=== PATIENT | female | born 1955 | race Caucasian/White ===

== ENCOUNTER 2020-06-26 14:46 | Outpatient (CLI) | payer MEDICARE, SELFPAY ==
--- NOTE | ~2020-06-26 | DEXA_ITS ---
Bone Density Report Name: Pamela Howell Age: 64 Sex: Female Ethnicity: White Date of : 1955 Indication: postmenopausal; height loss; prior fracture; Referring Provider: Guillaume Ray Study: Bone densitometry was performed. Exam Date: June 26, 2020 Accession number: [id number] Bone Density: Region BMD T-score Z-score Classification Femoral Neck (Left) 0.777 -0.6 0.9 Normal Total Hip (Left) 0.899 -0.3 0.9 Normal World Health Organization criteria for BMD impression classify patients as: Normal (T-score at or above -1.0), Osteopenia (T-score between -1.0 and -2.5), or Osteoporosis (T-score at or below -2.5). 10-year Fracture Risk: FRAX not reported because: All T-scores for Spine Total, Hip Total, Femoral Neck at or above -1.0 Prior hip or vertebral fracture Previous Exams: Region Exam Age BMD T-score BMD Change BMD Change Date g/cm2 vs Baseline vs Previous Total Hip(Left) 06/26/2020 64 0.899 -0.3 0.010(1.1%) 0.049(5.7%)* 05/23/2018 62 0.851 -0.7 -0.039(-4.4%)* -0.039(-4.4%)* 09/24/2014 58 0.890 -0.4 *Denotes significance at 95% confidence level, LSC for Total Hip = 0.027 g/cm2 Clinical Information Provided by Patient: Have had a previous hip or vertebral fracture Has had a low trauma fracture Has used the following medications: Vitamin D, Calcium Patient maximum height was 65 Menopause Age: 54 No regular weight bearing exercise Drinks caffeinated beverages Onset of menses at age 10 Number of children 3 Impression: The patient has normal bone mass. The patient has risk factors, including: previous fracture. No significant bone loss was observed. Discussion: INCREASED RISK OF FRACTURE DUE TO HISTORY OF FRACTURE. The patient's previous fracture puts the patient at high risk of a future fracture. In untreated patients, the risk of osteoporotic fracture increases approximately two-fold for each 1.0 SD decrease in T-score. Low bone density is not the only risk factor for fracture; also consider factors such as patient's age, frailty or poor health, risk of falling, risk of injury, previous osteoporotic fracture, family history of osteoporosis, cigarette smoking, low body weight, etc. Not everyone with a low trauma fracture has osteoporosis; osteomalacia and other metabolic bone disorders should also be considered. Patients who have osteoporosis should be evaluated for specific diseases and conditions (secondary causes) that may cause or contribute to bone loss and fracture risk. National Osteoporosis Foundation (NOF) recommends pharmacologic intervention for patient
--- NOTE | ~2020-06-26 | MM_ITS ---
EXAMINATION: MM screening corey BI w jos HISTORY: Screening TECHNIQUE: Craniocaudal and mediolateral oblique 3-D tomosynthesis images were obtained and synthetic 2-D images were generated. CAD analysis was submitted and interpreted. COMPARISON: Comparison to multiple prior studies sequentially, with oldest reviewed study dated 03/24. BREAST PARENCHYMAL COMPOSITION: The breasts are heterogenously dense, which may obscure small masses. FINDINGS: There is no evidence of suspicious mass, calcification, or architectural distortion to sugg est malignancy in either breast. There has been no suspicious interval change. IMPRESSION: 1. No mammographic evidence of malignancy. 2. Recommend routine screening mammography in one year. BI-RADS Category 1: Negative Reviewed, dictated and finalized at location A.
== END 2020-06-26 14:47 | disposition home or self-care (01) ==
PROVIDERS: PCP Family Medicine; Visit Provider Physician Assistant Medical
DX: Z12.31 Encounter for screening mammogram for malignant neoplasm of breast (principal); Z78.0 Asymptomatic menopausal state
CPT/HCPCS: 77063; 77067; 77080

== ENCOUNTER 2020-08-05 15:57 | Outpatient (CLI) | payer MEDICARE, SELFPAY ==
--- NOTE | ~2020-08-05 | CT_ITS ---
EXAMINATION: CT sinus wo con DATE: 08/05/2020 16:22 INDICATION: Headache, unspecified. Sinus pain and pressure. Sinus drainage. TECHNIQUE: Computed tomography (CT) of the paranasal sinuses was performed without intravenous contra st. Iterative reconstruction technique was employed. The dose-length product was 280.71 mGy-cm. COMPARISON: Head CT 09/10/2016 FINDINGS: The frontal sinuses are clear. There is mild mucosal thickening in the ethmoid sinuses bila terally. The sphenoid sinuses are clear. There is minimal mucosal thickening in the maxillary sinuses . There is rightward deviation of the nasal septum. Left middle turbinate is paradoxical anteriorly. There are bilateral Aniceto cells. The ostiomeatal units are patent. IMPRESSION: 1. Mild mucosal thickening in the paranasal sinuses. 2. Rightward deviation of the nasal septum. Reviewed, dictated and finalized at location A.
== END 2020-08-05 15:58 | disposition home or self-care (01) ==
LOC: ANHIMG 15:57
PROVIDERS: PCP Family Medicine; Visit Provider Otolaryngology
DX: J34.89 Other specified disorders of nose and nasal sinuses (principal); R51.9 Headache, unspecified; R44.8 Other symptoms and signs involving general sensations and perceptions; J34.2 Deviated nasal septum
CPT/HCPCS: 70486

== ENCOUNTER 2020-09-09 03:14 | Day surgery (SDC) | payer MEDICARE, SELFPAY ==
[2020-08-28 12:56] VITALS: BMI 29.8
[2020-09-09 09:04] VITALS: BP 123/76; PULSE 62; RESP 16; TEMP 36.3; O2SAT 97; BMI 29.1
[2020-09-09] MEDS: LACTATED RINGERS 1,000 ML 150 ML IV CONT (09:23)
--- NOTE | 2020-09-09 09:29 | WPDANESEPPF ---
Anes - Initial Pre Proc Eval Procedure: Operation Date: 09/09/20 10:00 Proposed Procedures p Screening Colonoscopy - Tho Martin MD Date/Time: 09/09/20 09:29 Surgeon: Tho Martin MD Pre Op Diagnosis: neoplasm screening Patient Data Age: 64 Gender: F Height: 1.57 m Weight: 72.2 kg Last Vital Signs Temp 36.3 C L 09/09/20 09:04 Pulse 62 09/09/20 09:04 Resp 16 09/09/20 09:04 BP 123/76 09/09/20 09:04 Pulse Ox 97 09/09/20 09:04 Allergies Allergy/AdvReac Type Severity Reaction Status Date / Time tobramycin Allergy Unknown Unknown Verified 09/09/20 09:02 meperidine [From Demerol] AdvReac Unknown Unknown Verified 09/09/20 09:02 Home Medications Medication Instructions Recorded Confirmed Type fluticasone propionate 50 1 spray INTRANASAL BID #16 ml 06/01/20 09/09/20 Rx mcg/actuation nasal spray,suspension alprazolam 0.25 mg PO DAILY PRN 08/28/20 09/09/20 History ascorbic acid (vitamin C) 500 mg PO DAILY 08/28/20 09/09/20 History calcium carbonate-vitamin D3 1 cap PO DAILY 08/28/20 09/09/20 History ibuprofen 200 mg PO BID 08/28/20 09/09/20 History metoprolol tartrate 25 mg PO BID 08/28/20 08/28/20 History multivit with min-folic acid 1 tablet PO DAILY 08/28/20 09/09/20 History [Adult One Daily Multivitamin] azelastine 137 mcg (0.1 %) nasal See Rx Instructions .ROUTE 09/03/20 09/09/20 Rx spray aerosol .COMPLEX #90 spray Patient hx anesthesia problems: none Family hx anesthesia problems: none PMFSH Past Medical History Medical History (Updated 09/09/20 @ 09:30 by Jatin Car MD) Essential hypertension Other forms of scoliosis, thoracolumbar region Paroxysmal SVT (supraventricular tachycardia) 05.20.20 event monitor sinus with intermittent svt ( short runs) Pinguecula of both eyes Plantar fasciitis, bilateral Trigger finger, left ring finger Unilateral primary osteoarthritis, right hip Family History Family History Father Family history of cardiovascular disease Family history of coronary artery disease Family history of heart disease in male family member before age 55 Mother Family history of aortic aneurysm Other Diabetes mellitus Social History Social History Years smoked: 10 Smoking status: Former smoker Tobacco type: cigarettes Smoking end date: 02/06/85 Alcohol intake: current Alcohol use details: Monthly Substance use: never Substance use type: does not use Living arrangements: with family Gender identity (if verbalized by the patient): Female Spiritual care concerns: No Anes - Eval Final PreProcedure Day of Procedure 09/09/20 09:29 Patient weight: overweight Heart: regular rate and rhythm Lungs: clear to auscultation and normal air movement Airway: Mallampati scale class II Neurological: alert and oriented Last oral intake: >/= 8 hours ASA classification: II Emergent: no Anesthetic plan: proceed Anesthesia type and monitoring: general GIVS Informed Consent: The patient's anesthetic plan and its attendant risks and benefits were discussed with the patient/family/POA. Questions were solicited and answers provided to the satisfaction of the patient/family/POA.
--- NOTE | 2020-09-09 09:55 | PM.HPGS ---
History of Present Illness History of Present Illness Consent: Risks, benefits, and alternatives have been discussed and questions answered. Patient agrees to proceed with procedure. Chief complaint: neoplasm screening Narrative: Pamela Howell is a 64 year old female referred for colon cancer screening. This is her 1st colonoscopy Review of Systems Review of Systems: All systems reviewed & are unremarkable except as noted in HPI and below PMFSH Past Medical History Medical History Essential hypertension Other forms of scoliosis, thoracolumbar region Paroxysmal SVT (supraventricular tachycardia) 05.20.20 event monitor sinus with intermittent svt ( short runs) Pinguecula of both eyes Plantar fasciitis, bilateral Trigger finger, left ring finger Unilateral primary osteoarthritis, right hip Family History Family History Father Family history of cardiovascular disease Family history of coronary artery disease Family history of heart disease in male family member before age 55 Mother Family history of aortic aneurysm Other Diabetes mellitus Social History Social History Years smoked: 10 Smoking status: Former smoker Tobacco type: cigarettes Smoking end date: 02/06/85 Alcohol intake: current Alcohol use details: Monthly Substance use: never Substance use type: does not use Living arrangements: with family Gender identity (if verbalized by the patient): Female Spiritual care concerns: No Meds Home Medications and Allergies Home Medications Medication Instructions Recorded Confirmed Type fluticasone propionate 50 1 spray INTRANASAL BID #16 ml 06/01/20 09/09/20 Rx mcg/actuation nasal spray,suspension alprazolam 0.25 mg PO DAILY PRN 08/28/20 09/09/20 History ascorbic acid (vitamin C) 500 mg PO DAILY 08/28/20 09/09/20 History calcium carbonate-vitamin D3 1 cap PO DAILY 08/28/20 09/09/20 History ibuprofen 200 mg PO BID 08/28/20 09/09/20 History metoprolol tartrate 25 mg PO BID 08/28/20 08/28/20 History multivit with min-folic acid 1 tablet PO DAILY 08/28/20 09/09/20 History [Adult One Daily Multivitamin] azelastine 137 mcg (0.1 %) nasal See Rx Instructions .ROUTE 09/03/20 09/09/20 Rx spray aerosol .COMPLEX #90 spray Allergies Allergy/AdvReac Type Severity Reaction Status Date / Time tobramycin Allergy Unknown Unknown Verified 09/09/20 09:02 meperidine [From Demerol] AdvReac Unknown Unknown Verified 09/09/20 09:02 Vital Signs Vital Signs - 24 hr 09/09/20 09:04 Temperature 36.3 C L Pulse Rate 62 Respiratory Rate 16 Blood Pressure 123/76 Pulse Oximetry 97 Exam Resp: Auscultation: clear to auscultation bilaterally Cardio: Rate: regular rate Rhythm: regular rhythm GI: GI Palp: Yes Soft to palpation and No Tenderness to palpation present (GI) Assessment and Plan Assessment and plan (1) Colon cancer screening: Code(s): Z12.11 - Encounter for screening for malignant neoplasm of colon Status: Acute Assessment and Plan: Colonoscopy with possible biopsy or polypectomy or cautery or injection of substances.
[2020-09-09 10:42] VITALS: BP 85/54; PULSE 66; RESP 18; O2SAT 98
[2020-09-09 10:52] VITALS: BP 98/66; PULSE 60; RESP 20; O2SAT 100
[2020-09-09 11:02] VITALS: BP 112/79; PULSE 62; RESP 18; O2SAT 100
== END 2020-09-09 11:12 | disposition home or self-care (01) ==
PROVIDERS: PCP Family Medicine; Visit Provider Internal Medicine Gastroenterology
PROC: 0DJD8ZZ Inspection of Lower Intestinal Tract, Via Natural or Artificial Opening Endoscopic (ICD-10-PCS; CPT 45378; principal; 2020-09-09 10:00)
DX: Z12.11 Encounter for screening for malignant neoplasm of colon (principal); D12.3 Benign neoplasm of transverse colon; K57.30 Diverticulosis of large intestine without perforation or abscess without bleeding; I10 Essential (primary) hypertension; I47.1 Supraventricular tachycardia; M41.85 Other forms of scoliosis, thoracolumbar region; H11.153 Pinguecula, bilateral; Z87.891 Personal history of nicotine dependence
CPT/HCPCS: 45380; 88305; J2704; J7120

== ENCOUNTER 2021-04-09 09:49 | Outpatient (CLI) | payer MEDICARE, SELFPAY ==
--- NOTE | ~2021-04-09 | XR_ITS ---
XR wrist LT w scaphoid DATE: 04/09/2021 10:21 INDICATION: Left wrist lateral pain. No injury. TECHNIQUE: 5 views COMPARISON: None FINDINGS: There is increased distance between the scaphoid and lunate. Triscaphe osteoarthritis. No fracture or dislocation, periosteal reaction or bone destruction. IMPRESSION: Scapholunate dissociation Osteoarthritis at triscaphe joint Reviewed, dictated and finalized at location A. ASTRUCTURE TECH
--- NOTE | ~2021-04-09 | XR_ITS ---
EXAMINATION: XR knee LT min 4V DATE: 04/09/2021 10:21 INDICATION: Left knee pain. TECHNIQUE: 4 views of left knee including standing views were obtained. COMPARISON: None. FINDINGS: Bone alignment is normal. No fracture. There is mild osteoarthritis of medial and lateral c ompartments and moderate osteoarthritis of patellofemoral compartment. No knee joint effusion. IMPRESSION: 1. Moderate left knee osteoarthritis. Reviewed, dictated and finalized at location A. RESPIRATORY
== END 2021-04-09 09:50 | disposition home or self-care (01) ==
LOC: ANHIMG 09:55
PROVIDERS: PCP Family Medicine; Visit Provider Physician Assistant Medical
DX: M25.562 Pain in left knee (principal); M25.532 Pain in left wrist; M17.12 Unilateral primary osteoarthritis, left knee; M19.032 Primary osteoarthritis, left wrist
CPT/HCPCS: 73110; 73564

== ENCOUNTER 2021-08-03 14:44 | Outpatient (CLI) | payer MEDICARE, SELFPAY ==
--- NOTE | ~2021-08-03 | MM_ITS ---
EXAMINATION: MM screening corey BI w jos HISTORY: Screening TECHNIQUE: Craniocaudal and mediolateral oblique 3-D tomosynthesis images were obtained and synthetic 2-D images were generated. CAD analysis was submitted and interpreted. COMPARISON: Comparison to multiple prior studies sequentially, with oldest reviewed study dated 06/2013. BREAST PARENCHYMAL COMPOSITION: Breast composed of scattered areas of fibroglandular density FINDINGS: There is no evidence of suspicious mass, calcification, or architectural distortion to sugg est malignancy in either breast. There has been no suspicious interval change. IMPRESSION: 1. No mammographic evidence of malignancy. 2. Recommend routine screening mammography in one year. BI-RADS Category 1: Negative Reviewed, dictated and finalized at location A.
== END 2021-08-03 14:45 | disposition home or self-care (01) ==
LOC: ANHIMG 14:46
PROVIDERS: PCP Family Medicine; Visit Provider Family Medicine
DX: Z12.31 Encounter for screening mammogram for malignant neoplasm of breast (principal)
CPT/HCPCS: 77063; 77067

== ENCOUNTER 2022-10-12 15:10 | Outpatient (CLI) | payer MEDICARE, SELFPAY ==
--- NOTE | ~2022-10-12 | MM_ITS ---
EXAMINATION: MM screening corey BI w jos HISTORY: Screening mammogram TECHNIQUE: Craniocaudal and mediolateral oblique 3-D tomosynthesis images were obtained and synthetic 2-D images were generated. CAD analysis was submitted and interpreted. COMPARISON: 08/03/2021, 06/26/2020, bilateral screening mammogram examinations BREAST PARENCHYMAL COMPOSITION: There are scattered areas of fibroglandular density. FINDINGS: There is no evidence of suspicious mass, calcification, or architectural distortion to sugg est malignancy in either breast. There has been no suspicious interval change. IMPRESSION: 1. No mammographic evidence of malignancy. 2. Recommend routine screening mammography in one year. BI-RADS Category 1: Negative Reviewed, dictated and finalized at location A.
== END 2022-10-12 15:11 | disposition home or self-care (01) ==
LOC: ANHIMG 15:12
PROVIDERS: PCP Family Medicine; Visit Provider Family Medicine
DX: Z12.31 Encounter for screening mammogram for malignant neoplasm of breast (principal)
CPT/HCPCS: 77063; 77067